=== PATIENT | female | born 1995 | race Two or more races ===

== ENCOUNTER → 2017-08-28 | Emergency (ER) | payer OTHER ==
[~2017-08-28] VITALS: Ht 154.9 cm; Wt 57.6 kg
[~2017-08-28] MED LIST: ALDACTAZIDE 251 EACH PO; LOMAIRA8 MG PO; PEPCID AC20 MG PO; ZOFRAN ODT4 MG PO
== END | disposition home or self-care (01) ==
LOC: ER 22:06
DX: K29.70 Gastritis, unspecified, without bleeding (principal); T62.8X1A Toxic effect of other specified noxious substances eaten as food, accidental (unintentional), initial encounter

== ENCOUNTER 2020-07-02 21:07 | Emergency (ER) | payer OTHER ==
[~2020-07-02] VITALS: Ht 154.9 cm; Wt 56.7 kg
[2020-07-03] MEDS ORDERED: PEPCID40 MG PO (03:50)
[2020-07-03] MEDS ORDERED: PHENERGAN25 MG PO (03:50)
== END 2020-07-03 03:55 | disposition home or self-care (01) ==
LOC: ER 21:07
DX: K29.70 Gastritis, unspecified, without bleeding (principal)